=== PATIENT | male | born 1965 | race Hispanic/Latino ===

== ENCOUNTER 2021-10-28 14:33 | Emergency (ER) | payer MEDICAID ==
[~2021-10-28] VITALS: Ht 170.2 cm; Wt 87.1 kg
[2021-10-28] MEDS ORDERED: LIDOCAINE HCL MPF 1% 5ML VIAL ONE (15:07)
[2021-10-28] MEDS ORDERED: LIDOCAINE HCL-MPF 1% 2ML VIAL ONE (15:12)
[2021-10-28] MEDS ORDERED: TETANUS/DIPHTHERIA TOXOID [ADULT] 0.5 ML VIAL IM ONE ×2 (15:30)
[2021-10-28] MEDS ORDERED: KETOROLAC 30MG VIAL (30MG/ML) IM ONE (15:30)
[2021-10-28] MEDS ORDERED: LIDOCAINE HCL-MPF 1% 2ML VIAL IM SCH (15:30)
[2021-10-28] MEDS ORDERED: IBUP-2070 PO (16:40)
[2021-10-28 16:58] VITALS: BP 128/65
== END 2021-10-28 17:03 | disposition home or self-care (01) ==
LOC: EDH 14:33
DX: S51.811A Laceration without foreign body of right forearm, initial encounter (principal); I10 Essential (primary) hypertension; Z79.1 Long term (current) use of non-steroidal anti-inflammatories (NSAID); W22.8XXA Striking against or struck by other objects, initial encounter; Y93.89 Activity, other specified; Y92.89 Other specified places as the place of occurrence of the external cause; Y99.8 Other external cause status
CPT/HCPCS: 12002; 73090 ×2; 90471; 90714; 96372; 99284; J1885; J3490 ×2